=== PATIENT | male | born 1970 | race Two or more races ===

== ENCOUNTER 2018-01-24 10:28 | Day surgery (SDC) | payer OTHER ==
[2018-01-24] MEDS ORDERED: CEFAZOLIN 2 GM/D5W RTU 2 GM/50 ML RTUPB IV ONE (10:54)
[2018-01-24] MEDS ORDERED: FENTANYL CITRATE INJ/PF 100 MCG/2 ML AMPUL ONE (12:23)
[2018-01-24] MEDS ORDERED: ONDANSETRON HCL INJ/PF 4 MG/2 ML SDV ONE (12:24)
[2018-01-24] MEDS ORDERED: MIDAZOLAM 2 MG/2 ML INJ ONE (12:24)
[2018-01-24] MEDS ORDERED: MORPHINE SULFATE 10 MG/ML INJ ONE (12:24)
[2018-01-24] MEDS ORDERED: DEXAMETHASONE SOD PHOSPHATE INJ 4 MG/1 ML VIAL ONE (12:24)
[2018-01-24] MEDS ORDERED: PROPOFOL INJ 200 MG/20 ML VIAL IV ONE (12:24)
[2018-01-24] MEDS ORDERED: BUPIVACAINE HCL 0.5 % INJ/PF 30 ML SDV ONE (12:36)
[2018-01-24] MEDS ORDERED: LIDOCAINE 1% INJ-PF (10 MG/ML) 30 ML SDV ONE (12:36)
[2018-01-24] MEDS ORDERED: PROMETHAZINE HCL INJ 25 MG/1 ML VIAL IV PRN ×2 (13:30)
[2018-01-24] MEDS ORDERED: MEPERIDINE HCL/PF INJ 25 MG/1 ML DISP.SYRIN IV PRN (13:30)
[2018-01-24] MEDS ORDERED: FENTANYL CITRATE INJ/PF 100 MCG/2 ML AMPUL IV PRN ×3 (13:30)
[2018-01-24] MEDS ORDERED: DIPHENHYDRAMINE HCL 50 MG/ML VIAL IV PRN (13:30)
[2018-01-24] MEDS ORDERED: OXYCODONE-ACETAMINOPHEN 5-325 MG TABLET PO PRN ×3 (13:30→14:48)
[2018-01-24] MEDS ORDERED: MORPHINE SULFATE 10 MG/ML INJ IV PRN (13:30)
[2018-01-24] MEDS ORDERED: ONDANSETRON HCL INJ/PF 4 MG/2 ML SDV IV PRN (14:53)
[2018-01-24] MEDS ORDERED: OXYCODONE-ACETAMINOPHEN 5-325 MG TABLET ONE (16:10)
[2018-01-24 17:46] VITALS: BP 111/72
--- NOTE | 2018-01-27 14:43 | OPERATIVE REPORT E ---
Operative Report NAME: DARCI PAK : 1970 AGE: 47Y DATE OF SURGERY: 01/24/2018 ROOM: PREOPERATIVE DIAGNOSES: 1. Right cubital tunnel syndrome. 2. Right De Quervain's tenosynovitis. POSTOPERATIVE DIAGNOSES: 1. Right cubital tunnel syndrome. 2. Right De Quervain's tenosynovitis. PROCEDURE: 1. Right ulnar nerve decompression with anterior transposition. 2. Right De Quervain's release, separate incision. SURGEON: MIKE GIL M.D. ANESTHESIA: General. ESTIMATED BLOOD LOSS: Minimal. COMPLICATIONS: None. 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 He has failed nonoperative treatment. He also has De Quervain's tenosynovitis with pain in the radial aspect of the wrist. DESCRIPTION OF PROCEDURE: Following the induction of a general anesthetic and administration of antibiotics, the patient was placed supine on the operating room table, bony prominences were padded, a tourniquet placed proximally on the right arm but not inflated. The right upper extremity was sterilely prepped with ChloraPrep and draped in standard fashion. The arm was exsanguinated and tourniquet placed at 100 mL above systolic pressure. We first turned our attention to the ulnar nerve. An 8 cm incision was made on the medial aspect of the elbow centered between the medial epicondyle and olecranon fossa. A sharp incision was performed through skin and blunt dissection through subcutaneous tissue. Care taken to identify and protect the superficial branch and nerves. The ulnar nerve identified proximally and dissected out distally in the typical region of Hawkins's ligament. Still muscular in this area which may have been leading to the point of his compression. The ulnar nerve was freed throughout the brachia and beneath the forearm between the flexor and pronator muscles. A vessel was displaced around the ulnar nerve and the ulnar was easily mobilized anterior to the epicondyle. The medial intermuscular septum was next excised. The ulnar nerve was brought anterior to the epicondyle and a fascial sleeve with flexor pronator musculature was fashioned to maintain the ulnar nerve anterior to the epicondyle. The elbow was taken through a full range of motion. The ulnar nerve stayed anterior to the epicondyle, and no other areas of kinking or stretching. The wound was copiously irrigated. Subcutaneous tissue was closed with 2-0 Vicryl, skin were approximated with 3-0 nylon. Next we turned our attention to the De Quervain's release. A 3 cm incision was made transversely, 2-cm proximal to the radial styloid. Sharp incision was performed through the skin and subcutaneous tissue. Care was taken to identify and protect superficial branches of the radial nerve. The first dorsal extensor compartment was opened at its most dorsal aspect. The APL was released. There was a separate compartment of the EPB and this compartment was also released. Following full release of the tendon the wound was copiously irrigated. Skin was reapproximated with a subcuticular 3-0 Monocryl suture and Steri-Strips were applied, 4% Marcaine were injected into both wounds, postoperative analgesia and a bulky sterile dressing was applied. The patient tolerated the procedure well without complications and was brought to the recovery room in stable condition. DICTATING PHYSICIAN: MIKE GIL M.D. [id number] PHY#: [id number] ID: [id number] JOB#: [id number] ACCT: [id number] cc:MIKE GIL M.D. > MTDD
== END 2018-01-24 17:35 | disposition home or self-care (01) ==
LOC: OROUT 10:28
PROVIDERS: ATTEND Orthopaedic Surgery
DX: G56.21 Lesion of ulnar nerve, right upper limb (principal); M65.4 Radial styloid tenosynovitis [de Quervain]; I10 Essential (primary) hypertension; J45.909 Unspecified asthma, uncomplicated
CPT/HCPCS: 64718; 25000; J2250; J3490; J1100; J3010; J2270; J2405; J2704; J0690; 1810

== ENCOUNTER 2018-04-11 08:07 | Day surgery (SDC) | payer OTHER ==
[~2018-04-11 08:07] MED LIST: CEFAZOLIN 2 GM/D5W RTU 2 GM/50 ML RTUPB IV PRN
[2018-04-11] MEDS ORDERED: MIDAZOLAM 2 MG/2 ML INJ ONE (08:25)
[2018-04-11] MEDS ORDERED: ACETAMINOPHEN 1,000 MG/100 ML RTUPB IV ONE (08:25)
[2018-04-11] MEDS ORDERED: FENTANYL CITRATE INJ/PF 100 MCG/2 ML AMPUL ONE (08:25)
[2018-04-11] MEDS ORDERED: PROPOFOL INJ 200 MG/20 ML VIAL IV ONE (08:25)
[2018-04-11] MEDS ORDERED: LIDOCAINE 1% INJ-PF (10 MG/ML) 30 ML SDV ONE (08:46)
[2018-04-11] MEDS ORDERED: BUPIVACAINE HCL 0.5 % INJ/PF 30 ML SDV ONE (08:46)
[2018-04-11] MEDS ORDERED: CEFAZOLIN 2 GM/D5W RTU 2 GM/50 ML RTUPB IV ONE (08:48)
[2018-04-11 09:27] LABS: ABSOLUTE EOSINOPHILS # (AUTO) 0.2 10^3/uL (0.0-0.6); ABSOLUTE LYMPHOCYTES (AUTO) 2.2 10^3/uL (0.5-4.7); ABSOLUTE MONOCYTES (AUTO) 0.5 10^3/uL (0.1-1.4); ABSOLUTE NEUT (AUTO) 2.4 10^3/uL (1.7-8.2); BASOPHILS % (AUTO) 0.8 % (0-2); EOSINOPHILS % (AUTO) 4.4 % (0-6); HEMATOCRIT 43.1 % (37.9-51.0); HEMOGLOBIN 14.9 g/dL (13.5-17.0); LYMPHOCYTES % (AUTO) 40.7 % (13-45); MEAN CORPUSCULAR HEMOGLOBIN 32.1 pg (27.0-33.4); MEAN CORPUSCULAR HGB CONC 34.6 g/dL (32.0-36.0); MEAN CORPUSCULAR VOLUME 93 fl (80-97); MONOCYTES % (AUTO) 9.1 % (3-13); PLATELET COUNT 291 10^3/uL (150-450); RED BLOOD COUNT 4.66 10^6/uL (4.35-5.55); RED CELL DISTRIBUTION WIDTH 13.5 % (11.5-14.0); TOTAL CELLS COUNTED % (AUTO) 100 %; WHITE BLOOD COUNT 5.4 10^3/uL (4.0-10.5)
[2018-04-11] MEDS ORDERED: BUPIVACAINE HCL 0.5 % INJ/PF 30 ML SDV INJ ONE ×2 (11:12)
[2018-04-11] MEDS ORDERED: DIPHENHYDRAMINE HCL 50 MG/ML VIAL IV PRN (11:16)
[2018-04-11] MEDS ORDERED: MEPERIDINE HCL/PF INJ 25 MG/1 ML DISP.SYRIN IV PRN (11:16)
[2018-04-11] MEDS ORDERED: PROMETHAZINE HCL INJ 25 MG/1 ML VIAL IV PRN ×2 (11:16)
[2018-04-11] MEDS ORDERED: FENTANYL CITRATE INJ/PF 100 MCG/2 ML AMPUL IV PRN ×3 (11:16)
[2018-04-11] MEDS ORDERED: MORPHINE SULFATE 10 MG/ML INJ IV PRN (11:16)
[2018-04-11] MEDS ORDERED: OXYCODONE-ACETAMINOPHEN 5-325 MG TABLET ONE (12:58)
[2018-04-11] MEDS ORDERED: OXYCODONE-ACETAMINOPHEN 5-325 MG TABLET PO PRN (13:28)
[2018-04-11] MEDS ORDERED: ONDANSETRON HCL INJ/PF 4 MG/2 ML SDV IV PRN (13:56)
[2018-04-11] MEDS ORDERED: DEXAMETHASONE SOD PHOSPHATE INJ 4 MG/1 ML VIAL ONE (15:00)
[2018-04-11] MEDS ORDERED: KETOROLAC TROMETHAMINE 60 MG/2 ML SDV ONE (15:00)
[2018-04-11] MEDS ORDERED: SUCCINYLCHOLINE CHLORIDE INJ 200 MG/10 ML VIAL ONE (15:00)
[2018-04-11] MEDS ORDERED: ONDANSETRON HCL INJ/PF 4 MG/2 ML SDV ONE (15:00)
[2018-04-11 15:08] VITALS: BP 116/75
--- NOTE | 2018-04-11 20:17 | OPERATIVE REPORT E ---
Operative Report NAME: DARCI PAK : 1970 AGE: 47Y DATE OF SURGERY: 04/11/2018 ROOM: PREOPERATIVE DIAGNOSIS: Left cubital tunnel syndrome. POSTOPERATIVE DIAGNOSIS: Left cubital tunnel syndrome. OPERATION: Left ulnar nerve decompression with anterior transposition. SURGEON: MIKE GIL M.D. ANESTHESIA: General. BLOOD LOSS: Minimal. COMPLICATIONS: None. INDICATIONS: The patient is a 47-year-old man with ulnar nerve compression instability. He has failed nonoperative treatment. PROCEDURE: Following the induction of a general anesthetic and administration of antibiotics, the patient was positioned supine on the operating room table, all bony prominences were padded, a tourniquet placed proximally on the left arm but not inflated. The left upper extremity was sterilely prepped with ChloraPrep and draped in standard fashion. The arm was exsanguinated and tourniquet placed at 250 mmHg above systolic pressure. A 6 cm incision was made on the medial aspect of the elbow centered between the medial epicondyle and olecranon fossa. A sharp incision was performed through skin and blunt dissection was performed through subcutaneous tissue. Care was taken to identify and protect the superficial branch and nerves. The ulnar nerve was identified underneath Hawkins's ligament. It was decompressed proximally and distally to allow free mobility of the ulnar nerve. The medial intermuscular septum was excised. A vessel loop was placed around the nerve allowing the nerve to grow anteriorly without any areas of compression. A fascial sleeve with fashions from the flexor pronator musculature and the nerve was brought anterior to the epicondyle and the fascial sleeve sutured over the nerve maintaining its position. The elbow was taken through a full range of motion. The ulnar nerve de demonstrated good gliding without any areas of compression or kinking. The wound was copiously irrigated. Subcutaneous tissue was closed with 2-0 Vicryl, skin reapproximated with 3-0 nylon 0.25% Marcaine was injected postoperative analgesia and a bulky sterile dressing was applied. The patient tolerated the procedure well without complications and was brought to the recovery room in stable condition. DICTATING PHYSICIAN: MIKE GIL M.D. [id number] PHY#: [id number] ID: [id number] JOB#: [id number] ACCT: [id number] cc:MIKE GIL M.D. >
== END 2018-04-11 15:13 | disposition home or self-care (01) ==
LOC: OROUT 08:07
PROVIDERS: ATTEND Orthopaedic Surgery
DX: G56.22 Lesion of ulnar nerve, left upper limb (principal); G56.21 Lesion of ulnar nerve, right upper limb; M65.4 Radial styloid tenosynovitis [de Quervain]; R03.0 Elevated blood-pressure reading, without diagnosis of hypertension
CPT/HCPCS: 64718; 36415; 85025; J2250; J3490; J1100; J1885; J3010; J0330; J2405; J2704; J0690; J0131; 1710